=== PATIENT | male | born 1985 | race Caucasian/White ===

== ENCOUNTER 2019-09-27 12:20 | Emergency (ER) | payer OTHER, SELFPAY ==
[2019-09-27 12:48] VITALS: BP 121/75; PULSE 62; RESP 16; TEMP 37.1; O2SAT 100
--- NOTE | 2019-09-27 15:40 | ED.URI ---
HPI - URI/Sore Throat General Chief Complaint: Upper Respiratory Infection Stated Complaint: cough/st Time Seen by Provider: 09/27/19 13:28 Source: patient Mode of arrival: ambulatory Limitations: no limitations History of Present Illness HPI Narrative: Patient presents presents with chief complaint of sore throat, dry cough, body aches that has been present for the past day. Patient states that he went to work and was felt that he needed to come and be evaluated for coronavirus. Patient not receive flu shot this year patient states a few days ago he went to a concert in [place]. Patient denies any out of country travel in the last 2 weeks. Patient denies any known exposure to a person with the coronavirus. Related Data Home Medications Medication Instructions Recorded Confirmed betamethasone dipropionate TOPICAL 09/27/19 [id number]-[id number]-ccos tablet 09/27/19 cetirizine mg 09/27/19 dicyclomine mg 09/27/19 omeprazole 09/27/19 prednisone 09/27/19 promethazine-DM ml 09/27/19 propranolol 09/27/19 sucralfate 09/27/19 tizanidine mg 09/27/19 tramadol mg 09/27/19 Allergies Allergy/AdvReac Type Severity Reaction Status Date / Time aspirin Allergy Severe FACIAL/THROAT Verified 09/27/19 12:51 SWELLING ibuprofen Allergy Severe FACIAL/THROAT Verified 09/27/19 12:51 SWELLING Penicillins Allergy Severe SOB/THROAT Verified 09/27/19 12:51 SWELLING sulfamethoxazole Allergy Severe SOB, Verified 09/27/19 12:51 THROAT SWELLING trimethoprim Allergy Severe SOB, Verified 09/27/19 12:51 THROAT SWELLING Review of Systems Review of Systems: Narrative: CONSTITUTIONAL: Denies fever, chills, or sweats. EYES: Denies visual changes, redness, or discharge. ENT: Reports rhinorrhea, congestion, sore throat, or otalgia. CARDIOVASCULAR: Denies chest pain, palpitations, or edema. RESPIRATORY: Reports cough denies dyspnea. GASTROINTESTINAL: Denies abdominal pain, nausea, vomiting, or diarrhea. GENITOURINARY: Denies dysuria or hematuria. SKIN: Denies rash or itching. MUSCULOSKELETAL: Denies back pain, joint pain, or myalgia. NEUROLOGIC: Denies headache, numbness, dizziness, or weakness. PSYCHIATRIC: Denies anxiety or depression. PMFSH Social History Social History Gender identity (if verbalized by the patient): Male Exam Narrative: Exam Narrative: GENERAL: Well-appearing, well-nourished, and in no acute distress. HEAD: Normocephalic, atraumatic. EYES: PERRLA and EOMI. ENT: Nares clear, no rhinorrhea or epistaxis. Mucous membranes moist with intermittent. Oropharynx without tonsillar hypertrophy exudate or other lesions. Bilateral TMs pearly rubalcava nonbulging NECK: Supple. No adenopathy or masses. No carotid bruits or JVD CHEST: Clear to auscultation. No respiratory distress. No wheezes rales or rhonchi HEART: Regular rate and rhythm. EXTREMITIES: Normal range of motion. No edema. SKIN: Warm, dry, no rash. NEURO: No focal deficits. Alert and oriented x3. PSYCH: Normal mood and affect. Course Vital Signs Vital signs: Vital Signs Temperature 98.7 F 09/27/19 12:48 Pulse Rate 62 09/27/19 12:48 Respiratory Rate 16 09/27/19 12:48 Blood Pressure 121/75 09/27/19 12:48 Pulse Oximetry 100 09/27/19 12:48 Temperature 98.7 F 09/27/19 12:48 Pulse Rate 62 09/27/19 12:48 Respiratory Rate 16 09/27/19 12:48 Blood Pressure 121/75 09/27/19 12:48 Pulse Oximetry 100 09/27/19 12:48 MDM - URI/Sore Throat MDM Narrative Medical decision making narrative: Discussed with patient he does not meet criteria for health department coronavirus testing. Discussed with patient the need to reduce spread with proper handwashing, staying home with sick to reduce exposure to others. Patient instructed to treat his symptoms symptomatically. Patient instructed to follow-up with primary care provider if he has any other questions or concerns. To return to emergency departme
== END 2019-09-27 16:06 | disposition home or self-care (01) ==
PROVIDERS: Emergency Provider Emergency Medicine; PCP Physician Assistant
DX: B34.9 Viral infection, unspecified (principal)
CPT/HCPCS: 87081; 87804; 87880; 99283

== ENCOUNTER 2022-10-22 20:04 | Emergency (ER) | payer OTHER, SELFPAY ==
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
--- NOTE | ~2022-10-22 | XR_ITS ---
XR knee LT min 4V DATE: 10/22/2022 20:38 INDICATION: Left knee pain TECHNIQUE: 4 views COMPARISON: None FINDINGS: There is no evidence of fracture, dislocation or joint effusion. Joint spaces are preserved . No radiopaque interarticular loose body or chondrocalcinosis. IMPRESSION: Negative Reviewed, dictated and finalized at location A. IMPRESSION: Negative
[2022-10-22 20:13] VITALS: BP 130/83; PULSE 71; RESP 18; TEMP 36.8; O2SAT 100
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
[2022-10-22] MEDS: LIDOCAINE 5% PATCH 1 PATCH TRANSDERM (22:23)
[2022-10-22] MEDS: HYDROcodone/acetaminophen (*CRX) 5-325 MG TABLET 1 TAB PO (22:23)
[2022-10-22 23:42] VITALS: BP 122/77; PULSE 69; RESP 18; TEMP 36.6; O2SAT 99
== END 2022-10-22 23:43 | disposition home or self-care (01) ==
PROVIDERS: Emergency Provider Physician Assistant; PCP Internal Medicine Gastroenterology
DX: S22.32XA Fracture of one rib, left side, initial encounter for closed fracture (principal); S89.92XA Unspecified injury of left lower leg, initial encounter; W22.8XXA Striking against or struck by other objects, initial encounter
CPT/HCPCS: 71046; 71100; 73564; 99284; A9270